=== PATIENT | female | born 1935 | race Caucasian/White ===

== ENCOUNTER 2017-09-07 10:17 | Emergency (ER) | payer OTHER ==
[~2017-09-07] VITALS: Ht 152.4 cm; Wt 70.0 kg
[~2017-09-07 10:17] MED LIST: GLIP5 PO; GLUCTAB PO; LOVA40TA PO
[2017-09-07 10:18] VITALS: BP 168/79; PULSE 86; RESP 12; TEMP 98.4; O2SAT 96
[2017-09-07] MEDS ORDERED: LOVA40TA PO (11:09)
[2017-09-07] MEDS ORDERED: METF500T4 PO (11:09)
[2017-09-07] MEDS ORDERED: GLIP5TAB8 PO (11:09)
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
[2017-09-07] MEDS ORDERED: NAPROXEN 500 MG TAB PO ONE (11:15)
[2017-09-07] MEDS ORDERED: traMADol HCL 50 MG TAB PO ONE (11:15)
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
[2017-09-07] MEDS ORDERED: NAPR500T PO (12:03)
[2017-09-07] MEDS ORDERED: TRAM50TA PO (12:03)
== END 2017-09-07 12:22 | disposition home or self-care (01) ==
LOC: NEPE 10:17
DX: S16.1XXA Strain of muscle, fascia and tendon at neck level, initial encounter (principal); S29.012A Strain of muscle and tendon of back wall of thorax, initial encounter; V89.2XXA Person injured in unspecified motor-vehicle accident, traffic, initial encounter; Y92.488 Other paved roadways as the place of occurrence of the external cause
CPT/HCPCS: 70450; 72072; 72125; 99285; L0150

== ENCOUNTER 2017-12-16 09:47 | Emergency (ER) | payer OTHER ==
[~2017-12-16] VITALS: Ht 152.4 cm; Wt 69.0 kg
[~2017-12-16 09:47] MED LIST changes: -GLIP5 PO; +GLIP5TAB8 PO; -GLUCTAB PO; +METF500T4 PO; +NAPR500T2 PO; +TRAM50TA PO
[2017-12-16 09:50] VITALS: BP 186/76; PULSE 79; RESP 18; TEMP 97.7; O2SAT 99
--- NOTE | 2017-12-16 10:28 | PD ---
HPI Chief Complaint: Injury Time Seen by Provider: 10:18 Travel History International Travel<30 days: No Contact w/Intl Traveler<30days: No Traveled to known affect area: No History of Present Illness HPI This is an 82-year-old female who presents to the emergency department having had a mechanical fall earlier this morning. She landed on her left side and tried to brace herself with her left hand. She has pain in her left wrist, constant, moderate severity, with no associated weakness or other injuries. She has not taken anything for the pain. She's not in any blood thinners. PFSH Past Medical History Hx Anticoagulant Therapy: No Arthritis: Yes High Cholesterol: Yes Diabetes: Yes Patient Takes Glucophage: Yes Diminished Hearing: No Hypertension: Yes Menopausal: Yes Past Surgical History Surgical History: No Previous Surgery Social History Alcohol Use: No Tobacco Use: No Substance Use: No Allergies-Medications (Allergen,Severity, Reaction): Coded Allergies: No Known Allergies (Unverified Adverse Reaction, Unknown, 12/16/17) Reported Meds & Prescriptions Reported Meds & Active Scripts Active Reported Metformin ER (Metformin HCl) 500 Mg Gee 500 Mg PO BID With evening meal Lovastatin 40 Mg Tab 40 Mg PO HS Glipizide 5 Mg Tab 5 Mg PO TID Take 30 minutes before a meal Review of Systems General / Constitutional: No: Fever, Chills Cardiovascular: No: Chest Pain or Discomfort Respiratory: No: Shortness of Breath Physical Exam Narrative GENERAL: Well-appearing, no acute distress, nontoxic SKIN: Warm and dry. HEAD: Atraumatic. Normocephalic. ENT: No nasal bleeding or discharge. Moist mucous membranes MUSCULOSKELETAL: Tender to palpation over the distal left radius with swelling and some deformity Vascular: 2+ left radial pulse with normal capillary refill NEUROLOGICAL: Awake and alert. No obvious cranial nerve deficits. Sensation and motor grossly intact in the median, ulnar and radial distributions of the left hand. PSYCHIATRIC: Appropriate mood and affect; insight and judgment normal. Data Data Last Documented VS Vital Signs Date Time Temp Pulse Resp B/P (MAP) Pulse Ox O2 Delivery O2 Flow Rate FiO2 12/16/17 09:50 97.7 79 18 186/76 (112) 99 Orders Orders Acetaminophen (Tylenol) (12/16/17 10:30) Wrist, Complete ([id number]) (12/16/17 ) Splint Or Brace Apply/Monitor (12/16/17 10:52) MDM Medical Decision Making Medical Screen Exam Complete: Yes Emergency Medical Condition: Yes Interpretation(s) Last 24 hours Impressions Wrist X-Ray 12/16/17 0000 Signed Impressions: Service Date/Time: Saturday, December 16, 2017 10:33 - CONCLUSION: Transverse fracture distal radius and nondisplaced fracture base of the ulnar styloid. Osteoporosis. Chondrocalcinosis. No dislocation. Ramesh Ricks MD Differential Diagnosis Distal radius fracture, nerve injury, ulnar fracture, radial ulnar dislocation Narrative Course This is an 82-year-old female who presents to the emergency department having fallen an outstretched hand with x-ray confirming a nondisplaced distal radius fracture. Given the good alignment of the fracture and her normal neurovascular exam I think it's reasonable to splint her and have her follow-up with as an outpatient with orthopedics. Patient has no other evidence of injuries. She'll be discharged home. Diagnosis Primary Impression: Distal radius fracture, left Qualified Codes: S52.502A - Unspecified fracture of the lower end of left radius, initial encounter for closed fracture Referrals: James Porras MD Patient Instructions: General Instructions Additional Instructions: If you develop numbness, weakness or severe pain in the left hand or wrist return to the emergency room. Follow-up with orthopedics as an outpatient. Med/Other Pt SpecificInfo: Prescription(s) given Scripts Acetaminophen (Tylenol) 325 Mg Tab 650 MG PO Q4H Y for PAIN SCALE 4 TO 10, #15 TAB 0 Refills Prov: Shannan Sanchez MD 12/16/17 Disposition: 01 DISCHARGE HOME Condition: Stable Shannan Sanchez MD Dec 16, 2017 10:28
[2017-12-16] MEDS ORDERED: ACETAMINOPHEN 500 MG CPLT PO ONE (10:30)
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
[2017-12-16] MEDS ORDERED: TYLE325T PO (11:17)
[2017-12-16] MEDS ORDERED: TRAM50TA PO (12:19)
[2017-12-16] MEDS ORDERED: traMADol HCL 50 MG TAB PO ONE (12:30)
== END 2017-12-16 12:43 | disposition home or self-care (01) ==
LOC: NEPK 09:47
DX: S52.502A Unspecified fracture of the lower end of left radius, initial encounter for closed fracture (principal); E78.00 Pure hypercholesterolemia, unspecified; E11.9 Type 2 diabetes mellitus without complications; I10 Essential (primary) hypertension; Z79.84 Long term (current) use of oral hypoglycemic drugs; W19.XXXA Unspecified fall, initial encounter
CPT/HCPCS: 29125; 73110